=== PATIENT | male | born 1955 | race Caucasian/White ===

== ENCOUNTER → 2018-10-24 | Outpatient (CLI) | payer OTHER ==
[~2018-10-24] MED LIST: AMOX500 PO; BISA5EC PO; CEPH500 PO; CRUTCH3 USE; Coumadin10 MG PO; GEMF600 PO; HYDACE10B PO; LORA.5 PO; Percocet 5-3251 EACH PO; RXANTBENOT AU; RXHYDACE PO; VALD20 PO; WARF10; WARF10 PO; WARF5 PO; WARF7.5 PO; XARELTO10 MG PO; XARELTO15 MG PO; ZOLP5 PO
[2018-10-24 12:57] LABS: BASOPHILS ABSOLUTE AUTO 0.06 K/mm3 (0.00-0.23); BASOPHILS PERCENT AUTO 1 % (0-2); EOSINOPHILS PERCENT AUTO 2 % (0-6); Hematocrit 42.7 % (37.0-53.0); Hemoglobin 14.7 g/dL (13.5-17.5); IMMATURE GRAN ABSOLUTE AUTO 0.03 K/mm3 (0.00-0.10); IMMATURE GRAN PERCENT AUTO 1 % (0-1); LYMPHOCYTES ABSOLUTE AUTO 1.36 K/mm3 (0.84-5.20); LYMPHOCYTES PERCENT AUTO 31 % (21-46); MONOCYTES ABSOLUTE AUTO 0.44 K/mm3 (0.16-1.47); MONOCYTES PERCENT AUTO 10 % (4-13); Mean Corpuscular HGB 30.6 pg (26.0-34.0); Mean Corpuscular HGB Conc 34.4 g/dL (31.5-36.5); Mean Corpuscular Volume 89 fL (80-100); Mean Platelet Volume 10.3 fL (9.1-12.4); NEUTROPHILS ABSOLUTE AUTO 2.35 K/mm3 (1.96-9.15); NEUTROPHILS PERCENT AUTO 54 % (41-73); Platelet Count 269 K/mm3 (150-400); RDW Coefficient Variation 13.1 % (11.7-14.2); RDW Standard Deviation 42.5 fL (35.1-46.3); Red Blood Cell Count 4.81 M/mm3 (4.30-5.90); White Blood Cell Count 4.34 K/mm3 (4.00-11.30)
[2018-10-24 13:11] LABS: Anion Gap 7 mmol/L (6-16); Blood Urea Nitrogen 15 mg/dL (8-24); Bun/Creatinine Ratio 14.7 (12.0-20.0); CO2, Blood 28 mmol/L (21-32); Calcium, Blood 9.1 mg/dL (8.5-10.1); Chloride, Blood 102 mmol/L (98-108); Creatinine, Blood 1.02 mg/dL (0.60-1.20); Glomerular Filtration Rate >60 (60-); Glucose, Blood 113 mg/dL (70-99); Sodium, Blood 137 mmol/L (136-145); Troponin I <0.015 ng/mL (0.000-0.040)
== END | disposition home or self-care (01) ==
LOC: LAB EV 12:53 → LAB SHORT 12:53
PROVIDERS: Physician Assistant Surgical
DX: R07.9 Chest pain, unspecified (principal)
CPT/HCPCS: 80048; 84484; 85025

== ENCOUNTER 2019-01-06 08:17 | Day surgery (SDC) | payer OTHER ==
--- NOTE | 2019-01-06 10:07 | NUR ---
PT TOLERATED PLACEMENT AND REMOVAL OF 18 GAUGE TO RAC. PT TOLERATED 2 DOSES OF IV METOPROLOL AND NITRO SL 0.4MG DOSE GIVEN. PT DENIED CP/PRESSURE/DIZZINESS THROUGHOUT PROCEDURE. ALL BELONGIGNS RETURNED TO PATIENT. UP TO AMBULATE WQITH A STEADY GAIT ON DEPARTURE.
== END 2019-01-06 22:48 | disposition home or self-care (01) ==
LOC: ORD 08:17 → CT 08:17 → ORD 08:30 → CT 09:00 → ORD 22:48
DX: R07.9 Chest pain, unspecified (principal); E78.5 Hyperlipidemia, unspecified; K21.9 Gastro-esophageal reflux disease without esophagitis; J45.909 Unspecified asthma, uncomplicated
CPT/HCPCS: 75574; Q9967

== ENCOUNTER 2019-02-11 06:06 | Day surgery (SDC) | payer OTHER ==
[~2019-02-11] VITALS: Ht 175.3 cm; Wt 105.0 kg
[~2019-02-11 06:06] MED LIST changes: +ATOR40TA PO; +Isosorbide Mono30 MG PO; +Prinivil10 MG PO; +ZESTORETIC 20-251 EA PO; +ZOLP10 PO
[2019-02-11] MEDS ORDERED: NITR.4SL SL (08:23)
--- NOTE | 2019-02-11 09:00 | NUR ---
PT AND FAMILY AT BEDSIDE. PT VERBALIZES UNDERSTANDING WRITTEN AND VERBAL ORDERS. VSS. R RADIAL SITE REMAINS CLEAR. CALL LIGHT WITHIN REACH.
--- NOTE | 2019-02-11 10:05 | NUR ---
PT TR BAND FULLY DEFLATED. NO BLEEDING OR HEMATOMA NOTED. VSS. NADN.
--- NOTE | 2019-02-11 10:36 | NUR ---
PT DRESSES SELF WITHOUT DIFF. AMBULATES TO AND FROM RESTROOM. VSS. NADN. TR BAND REMOVED. DOT DRESSING APPLIED. NO BLEEDING OR HEMATOMA NOTED. IV DC.D CATH INTACT. PRESSURE DSG APPLIED. PT R ARM IN SLING FOR COMFORT. PT DC TO HOME VIA WC/ESCORT WITH FAMILY
== END 2019-02-11 10:40 | disposition home or self-care (01) ==
LOC: MHTC 06:06 → ORSCMMR 06:06 → MHTC 06:07
DX: I25.119 Atherosclerotic heart disease of native coronary artery with unspecified angina pectoris (principal); I10 Essential (primary) hypertension; I82.501 Chronic embolism and thrombosis of unspecified deep veins of right lower extremity; E78.00 Pure hypercholesterolemia, unspecified; K21.9 Gastro-esophageal reflux disease without esophagitis; J45.909 Unspecified asthma, uncomplicated; Z87.891 Personal history of nicotine dependence
CPT/HCPCS: 93454; 99152; 99153; C1769; C1894; J1644; J2250; J3010; J7030; Q9967

== ENCOUNTER → 2019-11-20 | Outpatient (CLI) | payer OTHER ==
[~2019-11-20] MED LIST changes: +ACET325 PO; +Aspir 8181 MG PO; +Bactrim Ds Tab1 EACH PO; +CLIN300 PO; +Keflex500 MG PO; +LOSA25 PO; +NITR.4SL SL
== END | disposition home or self-care (01) ==
LOC: LAB SHORT 12:00 → LAB 12:00 → LAB FUT 11-18 16:05
DX: R19.7 Diarrhea, unspecified (principal)
CPT/HCPCS: 87493

== ENCOUNTER → 2020-12-01 | Outpatient (CLI) | payer OTHER | END | disposition home or self-care (01) | LOC: LAB 14:54 → LAB SHORT 14:54 | DX: D23.62 Other benign neoplasm of skin of left upper limb, including shoulder (principal) | CPT/HCPCS: 88305 ==

== ENCOUNTER 2022-02-18 20:28 | Emergency (ER) | payer OTHER ==
[~2022-02-18] VITALS: Ht 175.3 cm; Wt 106.6 kg
== END 2022-02-18 23:00 | disposition home or self-care (01) ==
LOC: ER 20:28
DX: S83.91XA Sprain of unspecified site of right knee, initial encounter (principal); E78.5 Hyperlipidemia, unspecified; Z86.718 Personal history of other venous thrombosis and embolism; Z86.711 Personal history of pulmonary embolism; Z91.030 Bee allergy status; Z79.82 Long term (current) use of aspirin; Z79.899 Other long term (current) drug therapy; V87.8XXA Person injured in other specified noncollision transport accidents involving motor vehicle (traffic), initial encounter
CPT/HCPCS: 73562-RT; 99283-25